=== PATIENT | male | born 1975 | race Caucasian/White ===

== ENCOUNTER 2016-10-22 15:35 | Outpatient (CLI) | payer OTHER | END 2016-10-22 16:12 | disposition home or self-care (01) | LOC: PROCWHC3 15:35 → PEDOP 16:12 | PROVIDERS: ATTEND Family Medicine | DX: J02.9 Acute pharyngitis, unspecified (principal); R05 Cough | CPT/HCPCS: 71020; 87502; 99212 ==

== ENCOUNTER → 2016-10-22 | Outpatient (CLI) | payer OTHER ==
--- NOTE | 2016-10-22 15:32 | XR ---
EXAMINATION TYPE: XR chest 2V DATE OF EXAM ORDERED: 10/22/2016 3:28 PM HISTORY: J02.9 Sore throat, R05 Cough. REFERENCE: None. FINDINGS: The lungs are clear. Pleural spaces are clear. Heart size is normal. IMPRESSION: NORMAL CHEST.
== END | disposition home or self-care (01) ==
LOC: RADXRMAIN 14:59
PROVIDERS: ATTEND Family Medicine
DX: R05 Cough (principal); J02.9 Acute pharyngitis, unspecified
CPT/HCPCS: 71020

== ENCOUNTER 2016-11-17 17:04 | Emergency (ER) | payer OTHER ==
[2016-11-17] MEDS ORDERED: SODIUM CHLORIDE 0.9% 1,000 ML IV ONE (18:34)
[2016-11-17] MEDS ORDERED: TAMSULOSIN 0.4 MG CAP.ER.24H PO STA (18:34)
[2016-11-17] MEDS ORDERED: KETOROLAC 30 MG/ML 1 ML VIAL IVP STA (18:34)
[2016-11-17] MEDS ORDERED: ONDANSETRON 4 MG/2 ML VIAL IVP STA (18:35)
--- NOTE | 2016-11-17 18:39 | ED ---
Abdominal Pain HPI - General Chief Complaint: Abdominal Pain Stated Complaint: side pain Time Seen by Provider: 11/17/16 18:25 Source: patient, RN notes reviewed Mode of arrival: ambulatory Limitations: no limitations - History of Present Illness Initial Comments: Patient is a 41-year-old male presents to the emergency for evaluation of left sided flank pain. Patient states he has a history of kidney stones. Patient states this feels like a kidney stone. Patient states pain began around 2 PM this afternoon. Patient states he drank water hoping it would pass it. Patient states the pain is not going away. Patient states he is nauseous but denies any vomiting. Patient states he is having slight trouble urinating. Patient denies any known blood in his urine. Patient denies constipation or diarrhea. Patient denies history of abdominal surgeries. Patient denies any abdominal pain. Patient denies headache or dizziness. Patient denies chest pain shortness of breath. Patient denies fevers or chills. Patient states having 10 out of 10 constant pain. Patient states pain does not improve with certain movements. - Related Data Home Medications Medication Instructions Recorded Confirmed Devil's Claw Otc 1 cap PO DAILY 11/17/16 11/17/16 Ibuprofen [Advil] 200 mg PO Q8HR PRN 11/17/16 11/17/16 Multivitamin [Men's Multi-Vitamin] 1 tab PO DAILY 11/17/16 11/17/16 Cecil-3 Fatty Acids/Fish Oil [Fish 1 cap PO DAILY 11/17/16 11/17/16 Oil 1,000 mg Softgel] Previous Rx's Medication Instructions Recorded Tamsulosin HCl [Flomax] 0.4 mg PO DAILY PRN #12 cap.er.24h 11/17/16 Allergies Allergy/AdvReac Type Severity Reaction Status Date / Time chocolate flavor Allergy Unknown Verified 11/17/16 17:21 Review of Systems ROS Statement: Those systems with pertinent positive or pertinent negative responses have been documented in the HPI. ROS Other: All systems not noted in ROS Statement are negative. Past Medical History Past Medical History: No Reported History Additional Past Medical History / Comment(s): kidney stones History of Any Multi-Drug Resistant Organisms: None Reported Past Surgical History: No Surgical Hx Reported Additional Past Surgical History / Comment(s): kidney stones Past Psychological History: No Psychological Hx Reported Smoking Status: Former smoker Past Alcohol Use History: None Reported Past Drug Use History: None Reported General Exam - General Exam Comments Initial Comments: Pacing around in exam room slight distress secondary to pain. Limitations: no limitations General appearance: alert Head exam: Present: atraumatic, normocephalic, normal inspection Eye exam: Present: normal appearance ENT exam: Present: normal exam Neck exam: Present: normal inspection Respiratory exam: Present: normal lung sounds bilaterally. Absent: respiratory distress Cardiovascular Exam: Present: regular rate, normal rhythm, normal heart sounds GI/Abdominal exam: Present: soft, normal bowel sounds. Absent: distended, tenderness, guarding, rebound, rigid Back exam: Present: normal inspection, full ROM, CVA tenderness (L). Absent: CVA tenderness (R) Neurological exam: Present: alert, oriented X3, CN II-XII intact, normal gait Psychiatric exam: Present: normal affect, normal mood Skin exam: Present: warm, dry, intact, normal color. Absent: rash Course Vital Signs 11/17/16 17:18 Temperature 98.8 F Pulse Rate 76 Respiratory 20 Rate Blood Pressure 172/96 O2 Sat by Pulse 95 Oximetry Medical Decision Making - Medical Decision Making Patient is a 41-year-old male presents to the emergency room for evaluation of left flank pain. Patient states after he urinated here he had relief of symptoms. Patient declined any narcotic pain relievers. Patient states he is feeling better. Patient states he would like to be discharged home. Advised patient to follow-up with his urologist or primary care provider. Right kidney stone noted on KUB x-ray. Patient states he is already aware of this. Return parameters discussed. - Lab Data Result diagrams: 11/17/16 18:50 11/17/16 18:50 Lab Results 11/17/16 11/17/16 11/17/16 Range/Units 18:50 18:50 19:50 WBC 7.9 (3.8-10.6) k/uL RBC 5.01 (4.30-5.90) m/uL Hgb 15.1 (13.0-17.5) gm/dL Hct 44.3 (39.0-53.0) % MCV 88.4 (80.0-100.0) fL MCH 30.2 (25.0-35.0) pg MCHC 34.2 (31.0-37.0) g/dL RDW 13.8 (11.5-15.5) % Plt Count 222 (150-450) k/uL Neutrophils % 71 % Lymphocytes % 18 % Monocytes % 8 % Eosinophils % 1 % Basophils % 1 % Neutrophils # 5.6 (1.3-7.7) k/uL Lymphocytes # 1.4 (1.0-4.8) k/uL Monocytes # 0.6 (0-1.0) k/uL Eosinophils # 0.1 (0-0.7) k/uL Basophils # 0.1 (0-0.2) k/uL Sodium 144 (137-145) mmol/L Potassium 4.3 (3.5-5.1) mmol/L Chloride 108 H (98-107) mmol/L Carbon Dioxide 27 (22-30) mmol/L Anion Gap 9 mmol/L BUN 15 (9-20) mg/dL Creatinine 0.90 (0.66-1.25) mg/dL Est GFR (MDRD) Af Amer >60 (>60 ml/min/1.73 sqM) Est GFR (MDRD) Non-Af >60 (>60 ml/min/1.73 sqM) Glucose 81 (74-99) mg/dL Calcium 9.9 (8.4-10.2) mg/dL Total Bilirubin 1.1 (0.2-1.3) mg/dL AST 50 (17-59) U/L ALT 66 (21-72) U/L Alkaline Phosphatase 54 (38-126) U/L Total Protein 7.5 (6.3-8.2) g/dL Albumin 4.4 (3.5-5.0) g/dL Urine Color Yellow Urine Appearance Cloudy (Clear) Urine pH 7.0 (5.0-8.0) Ur Specific [place] 1.011 (1.001-1.035) Urine Protein Trace H (Negative) Urine Glucose (UA) Negative (Negative) Urine Ketones Negative (Negative) Urine Blood Large H (Negative) Urine Nitrite Negative (Negative) Urine Bilirubin Negative (Negative) Urine Urobilinogen <2.0 (<2.0) mg/dL Ur Leukocyte Esterase Trace H (Negative) Urine RBC >182 H (0-5) /hpf Amorphous Sediment Rare H (None) /hpf Urine Bacteria Rare H (None) /hpf Urine Mucus Rare H (None) /hpf - Radiology Data Radiology results: report reviewed, image reviewed Disposition Clinical Impression: Hematuria, Left flank pain Disposition: HOME SELF-CARE Condition: Good Instructions: Kidney Stones (ED), Flank Pain (ED) Additional Instructions: Take Tylenol or Motrin as needed for pain. Drink plenty of water. Take Flomax as prescribed. Please follow-up with primary care provider or urologist in 24- 48 hours for reevaluation. If any new symptom arises or symptoms worsen, return to ER as soon as possible. Prescriptions: Tamsulosin HCl [Flomax] 0.4 mg PO DAILY PRN #12 cap.er.24h PRN Reason: Pain Referrals: Kierra Beth MD [Primary Care Provider] - 1-2 days Time of Disposition: 20:32
[2016-11-17 19:16] LABS: Basophils # (A) 0.1 k/uL (0-0.2); Basophils % (A) 1 %; CH 31.3; CHCM 35.5; Eosinophils # (A) 0.1 k/uL (0-0.7); Eosinophils % (A) 1 %; HCT 44.3 % (39.0-53.0); HDW 2.93; HGB 15.1 gm/dL (13.0-17.5); Luc # (Auto) 0.13; Luc % (Auto) 2; Lymphocytes # (A) 1.4 k/uL (1.0-4.8); Lymphocytes % (A) 18 %; MCH 30.2 pg (25.0-35.0); MCHC 34.2 g/dL (31.0-37.0); MCV 88.4 fL (80.0-100.0); Monocytes # (A) 0.6 k/uL (0-1.0); Monocytes % (A) 8 %; Neutrophils # (A) 5.6 k/uL (1.3-7.7); Neutrophils % (A) 71 %; RBC 5.01 m/uL (4.30-5.90); RDW 13.8 % (11.5-15.5); WBC 7.9 k/uL (3.8-10.6); WBC (Perox) 7.42
--- NOTE | 2016-11-17 19:22 | XR ---
EXAMINATION TYPE: XR KUB DATE OF EXAM: 11/17/2016 6:46 PM COMPARISON: NONE INDICATION: Pain TECHNIQUE: Single view abdomen upright view FINDINGS: There is a normal bowel gas pattern. Psoas margins are normal. No organomegaly is present. There is a 1.4 similar calcification inferior pole right kidney. A 0.6 cm calcification is within the inferior pole right kidney. IMPRESSION: 1. Right renal stones.
[2016-11-17 19:28] LABS: ALT 66 U/L (21-72); AST 50 U/L (17-59); Alkaline Phosphatase 54 U/L (38-126); Anion Gap 9 mmol/L; Blood Urea Nitrogen 15 mg/dL (9-20); Calcium 9.9 mg/dL (8.4-10.2); Carbon Dioxide 27 mmol/L (22-30); Chloride 108 mmol/L (98-107); Glucose 81 mg/dL (74-99); Non-African American GFR(MDRD) >60 (>60 ml/min/1.73 sqM); Potassium 4.3 mmol/L (3.5-5.1); Sodium 144 mmol/L (137-145); Total Bilirubin 1.1 mg/dL (0.2-1.3); Total Protein 7.5 g/dL (6.3-8.2)
[2016-11-17 20:07] LABS: Amorphous Sediment,Urine Rare /hpf; Appearance,Urine Cloudy (Clear); Bacteria,Urine Rare /hpf; Bilirubin,Urine Negative (Negative); Glucose,Urine (UA) Negative (Negative); Ketones,Urine Negative (Negative); Leukocyte Esterase,Urine Trace (Negative); Mucus,Urine Rare /hpf; Nitrite,Urine Negative (Negative); Particle Count 8843; Protein,Urine Trace (Negative); RBC,Urine >182 /hpf (0-5); Specific Gravity,Urine 1.011 (1.001-1.035); UA Billing (MACRO vs. MICRO) MICRO; Urobilinogen,Urine <2.0 mg/dL (<2.0)
[2016-11-17 20:41] VITALS: BP 144/79; PULSE 87; RESP 18; TEMP 98
== END 2016-11-17 20:41 | disposition home or self-care (01) ==
LOC: EC 17:04
DX: R31.9 Hematuria, unspecified (principal); R10.9 Unspecified abdominal pain; N20.0 Calculus of kidney; Z87.891 Personal history of nicotine dependence; Z79.899 Other long term (current) drug therapy; Z91.018 Allergy to other foods
CPT/HCPCS: 36415; 80053; 85025; 81001; 74000; 99284; 96374; 96375; J2405; J1885

== ENCOUNTER 2017-08-21 19:38 | Emergency (ER) | payer OTHER ==
--- NOTE | 2017-08-21 20:16 | ED ---
General Adult HPI - General Chief complaint: Fall Stated complaint: fall,head lac Time Seen by Provider: 08/21/17 19:59 Source: patient, family, EMS, RN notes reviewed Mode of arrival: wheelchair Limitations: no limitations - History of Present Illness Initial comments: Chief complaint and history of present illness a 42-year-old male reports about a gas station he stepped out of his car slipped on black ice hitting the back of his head. No known loss of consciousness but no seizure activity reported. Patient presents with a headache. An abrasion to his scalp. His immunizations are up-to-date. - Related Data Home Medications Medication Instructions Recorded Confirmed Ibuprofen [Motrin Ib] 800 mg PO Q8H PRN 08/21/17 08/21/17 Allergies Allergy/AdvReac Type Severity Reaction Status Date / Time chocolate flavor Allergy Unknown Verified 08/21/17 20:41 corn Allergy Rash/Hives Verified 08/21/17 20:41 strawberry Allergy Rash/Hives Verified 08/21/17 20:41 FIG Allergy Unknown Uncoded 08/21/17 20:41 Review of Systems ROS Statement: Those systems with pertinent positive or pertinent negative responses have been documented in the HPI. Review of systems patient has a mild headache no visual acuity changes minimal no neck pain no back pain no chest pain or shortness of breath no neuro deficits. Does not complain of nausea or vomiting and again there is no seizure activity at the event. All systems were reviewed. Past medical problems significant for multiple kidney stones. His only surgical procedure been a cystoscopy. The patient's family history has various cancers most notably non-Hodgkin's lymphoma. The patient's denying any ALLERGIES. He does smoke occasionally. Denies alcohol use. ROS Other: All systems not noted in ROS Statement are negative. Past Medical History Past Medical History: No Reported History Additional Past Medical History / Comment(s): kidney stones History of Any Multi-Drug Resistant Organisms: None Reported Past Surgical History: No Surgical Hx Reported Additional Past Surgical History / Comment(s): kidney stones Past Psychological History: No Psychological Hx Reported Smoking Status: Current some day smoker Past Alcohol Use History: None Reported Past Drug Use History: None Reported General Exam - General Exam Comments Initial Comments: General: The patient is awake and alert, in no distress, and does not appear acutely ill. She complains of a headache after slipping on black ice and bumping his head. Temp 98.0 pulse 63 respiratory rate 16 pulse ox 96% room air blood pressure 182/99 this will be repeated. Eye: Pupils are equal, round and reactive to light, extra-ocular movements are intact ; there is normal conjunctiva bilaterally. No signs of icterus. Ears, nose, mouth and throat: Head; abrasion on the occiput. No open wound. Cleaned and dressed properly. There are moist mucous membranes and no oral lesions. Neck: The neck is supple, there is no tenderness , minimal discomfort. Full range of motion. Cardiovascular: There is a regular rate and rhythm. No murmur, rub or gallop is appreciated. Respiratory: Lungs are clear to auscultation, respirations are non-labored, breath sounds are equal. No wheezes, stridor, rales, or rhonchi. Gastrointestinal: Soft, non-distended, non-tender abdomen without masses or organomegaly noted. There is no rebound or guarding present. No CVA tenderness. Bowel sounds are unremarkable. Back: There is no tenderness to palpation in the midline. There is no obvious deformity. No rashes noted. Full range of motion without pain. Musculoskeletal: Normal ROM, no tenderness, There is no pedal edema. There is no calf tenderness or swelling. Sensation intact. Full range of motion without pain. Neurological: CN II-XII intact, There are no obvious motor or sensory deficits. Coordination appears grossly intact. Speech is normal. No focal or lateralizing findings Skin: Skin is warm and dry and no rashes or lesions are noted. Limitations: no limitations Course Vital Signs 08/21/17 19:52 Temperature 98.0 F Pulse Rate 63 Respiratory 16 Rate Blood Pressure 182/99 O2 Sat by Pulse 96 Oximetry Medical Decision Making - Medical Decision Making Medical decision making; this is a 42-year-old male who slipped on black ice while getting out of his car at a gas station. Hitting the back of his head. He presents with an abrasion. No apparent loss of consciousness and no seizure activity at the time. Complains a headache. The abrasions to his occiput was cleaned and dressed with topical antibiotic ointment. No need for sutures. Patient had a CAT scan of the brain and cervical spine. CT the brain and cervical spine was done and reviewed radiologist entire reports were reviewed. Final impression is there is no acute fracture or dislocation evident in the cervical spine. No acute intracranial hemorrhage, mass effect, or midline shift seen. Occipital scalp hematoma measuring 1.1 cm in greatest thickness. Straightening of a usual cervical lordosis that may reflect relate to muscular spasm or patient positioning. As read by Dr. Moore Patient be advised to wash the scalp gently. Apply topical bacitracin. Use a ice pack on his scalp. Take ibuprofen or Tylenol for discomfort. Advised follow-up with family physician. Disposition Clinical Impression: Scalp contusion Disposition: HOME SELF-CARE Condition: Fair Instructions: Concussion (ED), Post Concussion Syndrome (ED) Additional Instructions: Rest relax, follow-up with family doctor. Is a cold compress on his scalp. Wash gently. Apply bacitracin to areas of abrasion. Use Tylenol or ibuprofen for pain. Referrals: Kierra Beth MD [Primary Care Provider] - 1-2 days Time of Disposition: 21:04
--- NOTE | 2017-08-21 20:56 | CT ---
EXAMINATION TYPE: CT brain eleanor newell con DATE OF EXAM: 08/21/2017 COMPARISON: NONE HISTORY: Fall with subsequent head and neck pain. CT DLP: 1833.9 mGycm. Automated Exposure Control for Dose Reduction was Utilized. TECHNIQUE: CT scan of the head and cervical spine are performed without contrast. FINDINGS: There is no acute intracranial hemorrhage, mass effect, or midline shift identified. The ventricles and sulci are within normal limits in size. The globes are intact and the visualized sin uses are clear. Posterior occipital scalp hematoma measures 1.1 cm in greatest thickness. No underlyi ng calvarial fracture or intracranial hemorrhage. Cervical spine is visualized in its entirety from C1 through upper thoracic levels and demonstrates s atisfactory alignment without evidence of acute fracture or dislocation. Prevertebral soft tissue ap pears within normal limits. The C1-C2 articulation is unremarkable. There is straightening of the u sual cervical lordosis. IMPRESSION: 1. There is no acute fracture or dislocation evident in the cervical spine. 2. No acute intracranial hemorrhage, mass effect, or midline shift is seen. 3. Occipital scalp hematoma measuring 1.1 cm in greatest thickness. 4. Straightening of the usual cervical lordosis that may relate to muscular spasm or patient position ing.
[2017-08-21] MEDS ORDERED: ONDANSETRON 4 MG ODT STARTER PACK 2 TAB BTL PO STA (21:07)
[2017-08-21 21:39] VITALS: BP 115/87; PULSE 99; RESP 18; TEMP 97.4
== END 2017-08-21 21:39 | disposition home or self-care (01) ==
LOC: EC 19:38
DX: S00.03XA Contusion of scalp, initial encounter (principal); F17.200 Nicotine dependence, unspecified, uncomplicated; Z91.018 Allergy to other foods; W00.0XXA Fall on same level due to ice and snow, initial encounter; Y93.89 Activity, other specified; Y92.524 Gas station as the place of occurrence of the external cause
CPT/HCPCS: 99284; 72125; 70450; S0119

== ENCOUNTER 2017-12-19 07:02 | Emergency (ER) | payer OTHER ==
[2017-12-19 07:08] VITALS: BP 200/114; PULSE 73; RESP 18; TEMP 98.2
[2017-12-19] MEDS ORDERED: SODIUM CHLORIDE 0.9% 1,000 ML IV STA (07:22)
[2017-12-19] MEDS ORDERED: METOCLOPRAMIDE 5 MG/ML 2 ML VIAL IVP STA (07:22)
[2017-12-19] MEDS ORDERED: KETOROLAC 30 MG/ML 1 ML VIAL IVP STA (07:22)
--- NOTE | 2017-12-19 07:25 | ED ---
General Adult HPI - General Chief complaint: Abdominal Pain Stated complaint: Flank Pain Time Seen by Provider: 12/19/17 07:16 Source: patient, RN notes reviewed Mode of arrival: ambulatory Limitations: no limitations - History of Present Illness Initial comments: Patient is a pleasant 42-year-old male presenting to the emergency Department with complaints of right flank pain. Patient has had multiple previous kidney stones with similar symptoms. Onset this time was around 1 month ago. Symptoms worsened throughout the night. Discomfort is severe at this time. Patient gently pass out 3 kidney stones per year similar symptoms. Patient did see his urologist less than 1 year ago and was told he has a large kidney stone. No dysuria or hematuria. Patient does have some mild nausea. No fever. - Related Data Home Medications Medication Instructions Recorded Confirmed Ibuprofen [Motrin Ib] 800 mg PO Q8H PRN 08/21/17 08/21/17 Previous Rx's Medication Instructions Recorded Ketorolac [Toradol] 10 mg PO Q6HR PRN #15 tab 12/19/17 Metoclopramide HCl [Reglan] 10 mg PO Q6HR PRN #15 tablet 12/19/17 Allergies Allergy/AdvReac Type Severity Reaction Status Date / Time chocolate flavor Allergy Unknown Verified 12/19/17 07:08 corn Allergy Rash/Hives Verified 12/19/17 07:08 strawberry Allergy Rash/Hives Verified 12/19/17 07:08 FIG Allergy Unknown Uncoded 12/19/17 07:08 Review of Systems ROS Statement: Those systems with pertinent positive or pertinent negative responses have been documented in the HPI. ROS Other: All systems not noted in ROS Statement are negative. Constitutional: Denies: fever, chills Eyes: Denies: eye pain ENT: Denies: ear pain Respiratory: Denies: dyspnea Cardiovascular: Denies: chest pain Endocrine: Denies: fatigue Gastrointestinal: Reports: abdominal pain, nausea Genitourinary: Denies: dysuria Musculoskeletal: Reports: back pain (Right flank) Skin: Denies: rash Neurological: Denies: weakness Past Medical History Past Medical History: No Reported History Additional Past Medical History / Comment(s): kidney stones History of Any Multi-Drug Resistant Organisms: None Reported Past Surgical History: No Surgical Hx Reported Additional Past Surgical History / Comment(s): kidney stones Past Psychological History: No Psychological Hx Reported Smoking Status: Current some day smoker Past Alcohol Use History: None Reported Past Drug Use History: None Reported General Exam Limitations: no limitations General appearance: alert, in no apparent distress Head exam: Present: atraumatic Eye exam: Present: normal appearance, PERRL Neck exam: Present: normal inspection Respiratory exam: Present: normal lung sounds bilaterally Cardiovascular Exam: Present: regular rate, normal rhythm GI/Abdominal exam: Present: soft, tenderness (Mild tenderness right flank to right lower quadrant) Extremities exam: Present: normal inspection Back exam: Present: CVA tenderness (R) Neurological exam: Present: alert Psychiatric exam: Present: normal affect, normal mood Skin exam: Present: normal color Course Vital Signs 12/19/17 07:05 Temperature 98.2 F Pulse Rate 73 Respiratory 18 Rate Blood Pressure 200/114 O2 Sat by Pulse 96 Oximetry Medical Decision Making - Medical Decision Making Patient reevaluated and significantly improved with Toradol. Patient requests discharge. Patient and father updated on results and need for follow-up - Lab Data Result diagrams: 12/19/17 07:38 12/19/17 07:38 Lab Results 12/19/17 12/19/17 12/19/17 Range/Units 07:38 07:38 09:05 WBC 9.3 (3.8-10.6) k/uL RBC 5.22 (4.30-5.90) m/uL Hgb 15.8 (13.0-17.5) gm/dL Hct 45.0 (39.0-53.0) % MCV 86.2 (80.0-100.0) fL MCH 30.2 (25.0-35.0) pg MCHC 35.0 (31.0-37.0) g/dL RDW 13.2 (11.5-15.5) % Plt Count 215 (150-450) k/uL Neutrophils % 79 % Lymphocytes % 11 % Monocytes % 8 % Eosinophils % 1 % Basophils % 0 % Neutrophils # 7.4 (1.3-7.7) k/uL Lymphocytes # 1.0 (1.0-4.8) k/uL Monocytes # 0.7 (0-1.0) k/uL Eosinophils # 0.1 (0-0.7) k/uL Basophils # 0.0 (0-0.2) k/uL Sodium 141 (137-145) mmol/L Potassium 4.4 (3.5-5.1) mmol/L Chloride 102 (98-107) mmol/L Carbon Dioxide 27 (22-30) mmol/L Anion Gap 12 mmol/L BUN 16 (9-20) mg/dL Creatinine 1.17 (0.66-1.25) mg/dL Est GFR (CKD-EPI)AfAm 89 (>60 ml/min/1.73 sqM) Est GFR (CKD-EPI)NonAf 77 (>60 ml/min/1.73 sqM) Glucose 101 H (74-99) mg/dL Calcium 9.6 (8.4-10.2) mg/dL Total Bilirubin 1.0 (0.2-1.3) mg/dL AST 37 (17-59) U/L ALT 67 (21-72) U/L Alkaline Phosphatase 58 (38-126) U/L Total Protein 7.0 (6.3-8.2) g/dL Albumin 4.4 (3.5-5.0) g/dL Amylase 55 (30-110) U/L Lipase 103 (23-300) U/L Urine Color Light Yellow Urine Appearance Clear (Clear) Urine pH 7.5 (5.0-8.0) Ur Specific [place] 1.013 (1.001-1.035) Urine Protein Negative (Negative) Urine Glucose (UA) Negative (Negative) Urine Ketones Negative (Negative) Urine Blood Trace H (Negative) Urine Nitrite Negative (Negative) Urine Bilirubin Negative (Negative) Urine Urobilinogen <2.0 (<2.0) mg/dL Ur Leukocyte Esterase Negative (Negative) Urine RBC 2 (0-5) /hpf Urine WBC 2 (0-5) /hpf Urine Mucus Rare H (None) /hpf - Radiology Data Radiology results: image reviewed (KUB shows to right-sided kidney stones.) Disposition Clinical Impression: Kidney stone on right side Disposition: HOME SELF-CARE Condition: Stable Instructions: Kidney Stones (ED) Additional Instructions: Please follow-up with primary care physician and urologist in the next couple of days for recheck. Return for fever, increased pain, vomiting, worsening symptoms or other concerns. Prescriptions: Ketorolac [Toradol] 10 mg PO Q6HR PRN #15 tab PRN Reason: Pain Metoclopramide HCl [Reglan] 10 mg PO Q6HR PRN #15 tablet PRN Reason: Nausea Is patient prescribed a controlled substance at d/c from ED?: No Referrals: Kierra Beth MD [Primary Care Provider] - 1-2 days Juan Antonio Linares MD [Family Provider] - 1-2 days Time of Disposition: 09:55
[2017-12-19 08:00] LABS: Basophils % (A) 0 %; Eosinophils # (A) 0.1 k/uL (0-0.7); Eosinophils % (A) 1 %; HGB 15.8 gm/dL (13.0-17.5); Lymphocytes % (A) 11 %; MCH 30.2 pg (25.0-35.0); MCV 86.2 fL (80.0-100.0); Mean Platelet Volume 6.9; Monocytes # (A) 0.7 k/uL (0-1.0); Monocytes % (A) 8 %; Neutrophils # (A) 7.4 k/uL (1.3-7.7); Neutrophils % (A) 79 %; Platelet Count 215 k/uL (150-450); RBC 5.22 m/uL (4.30-5.90); RDW 13.2 % (11.5-15.5); WBC 9.3 k/uL (3.8-10.6)
[2017-12-19 08:04] LABS: Albumin 4.4 g/dL (3.5-5.0); Calcium 9.6 mg/dL (8.4-10.2); Potassium 4.4 mmol/L (3.5-5.1)
--- NOTE | 2017-12-19 08:10 | XR ---
EXAMINATION TYPE: XR KUB DATE OF EXAM: 12/19/2017 8:01 AM CLINICAL HISTORY: Right flank pain and history of nephrolithiasis TECHNIQUE: Single supine KUB image of the abdomen is obtained. COMPARISON: 11/17/2016. FINDINGS: The previously seen approximately 1.4 cm and adjacent 5 mm right lower pole renal calculi a re unchanged in position from the prior exam of 11/17/2016. Additional calculus is seen in the upper p ole measuring 8 mm. Similar-appearing phleboliths are noted within the pelvis with a new phlebolith h aving a lucent center on the right. No abnormal calcifications are seen along the course of the urete rs. Gas is seen in non-distended small bowel loops. Gas and fecal material is seen in non-distended c olon. The lung bases are clear and the osseous structures are intact. IMPRESSION: Stable right lower pole renal calculi in comparison to exam of 11/17/2016 with an addition al right upper pole renal calculus identified. No calculi are seen along the course of the ureters.
[2017-12-19] MEDS ORDERED: SODIUM CHLORIDE 0.9% 1,000 ML BAG ONE (08:38)
[2017-12-19] MEDS ORDERED: KETOROLAC 30 MG/ML 1 ML VIAL ONE (08:38)
[2017-12-19] MEDS ORDERED: METOCLOPRAMIDE 5 MG/ML 2 ML VIAL ONE (08:38)
[2017-12-19 09:22] LABS: Appearance,Urine Clear (Clear); Bilirubin,Urine Negative (Negative); Blood,Urine Trace (Negative); Color,Urine Light Yellow; Glucose,Urine (UA) Negative (Negative); Ketones,Urine Negative (Negative); Leukocyte Esterase,Urine Negative (Negative); Mucus,Urine Rare /hpf; Nitrite,Urine Negative (Negative); PH, Urine 7.5 (5.0-8.0); Protein,Urine Negative (Negative); RBC,Urine 2 /hpf (0-5); Specific Gravity,Urine 1.013 (1.001-1.035); Urobilinogen,Urine <2.0 mg/dL (<2.0); WBC,Urine 2 /hpf (0-5)
== END 2017-12-19 10:04 | disposition home or self-care (01) ==
LOC: EC 07:02
DX: N20.0 Calculus of kidney (principal); F17.200 Nicotine dependence, unspecified, uncomplicated; Z91.018 Allergy to other foods
CPT/HCPCS: 36415; 74018; 80053; 81001; 82150; 83690; 85025; 99284

== ENCOUNTER 2021-10-09 17:34 | Emergency (ER) | payer OTHER ==
[2021-10-09 17:49] VITALS: BP 141/89; PULSE 74; RESP 18; TEMP 97.9
[2021-10-09] MEDS ORDERED: CLOTRIMAZOLE/BETAMETH 1-0.05% CREAM 45 GM TUBE TOPICAL STA (21:44)
[2021-10-09 21:59] LABS: Basophils # (A) 0.1 k/uL (0-0.2); Basophils % (A) 1 %; Eosinophils # (A) 0.2 k/uL (0-0.7); Eosinophils % (A) 3 %; HCT 44.1 % (39.0-53.0); HGB 15.2 gm/dL (13.0-17.5); Lymphocytes # (A) 2.4 k/uL (1.0-4.8); Lymphocytes % (A) 36 %; MCH 30.8 pg (25.0-35.0); MCHC 34.5 g/dL (31.0-37.0); Monocytes # (A) 0.6 k/uL (0-1.0); Monocytes % (A) 8 %; Neutrophils # (A) 3.3 k/uL (1.3-7.7); Neutrophils % (A) 50 %; Platelet Count 214 k/uL (150-450); RBC 4.95 m/uL (4.30-5.90); RDW 12.9 % (11.5-15.5); WBC 6.7 k/uL (3.8-10.6)
[2021-10-09 22:08] LABS: African American GFR (CKD) >90 (>60 ml/min/1.73 sqM); Anion Gap 6 mmol/L; Blood Urea Nitrogen 18 mg/dL (9-20); Calcium 9.2 mg/dL (8.4-10.2); Carbon Dioxide 27 mmol/L (22-30); Chloride 105 mmol/L (98-107); Glucose 116 mg/dL (74-99); Non-African American GFR(CKD) >90 (>60 ml/min/1.73 sqM); Potassium 3.7 mmol/L (3.5-5.1); Sodium 138 mmol/L (137-145)
--- NOTE | 2021-10-09 22:19 | ED ---
General Adult HPI - General Chief complaint: Skin/Abscess/Foreign Body Stated complaint: Skin Time Seen by Provider: 10/09/21 20:58 Source: patient, RN notes reviewed Mode of arrival: ambulatory Limitations: no limitations - History of Present Illness Initial comments: 46-year-old male presents to the emergency department for evaluation of swelling and skin breakdown to the foreskin of his penis. Patient states this has been an ongoing issue for the past 2 months, however only recently discussed this issue with his PCP. States she started him on Augmentin earlier this week, though he has only had 3 doses with some improvement. Patient states he has painful erections due to splitting and cracking of the foreskin. Patient states he has not been sexually active for more than seven years and is not concerned about any sexually acquired infectious process. States he has been bathing in [employer] salt soaks. Denies any penile pain or discharge. No fever, chills, abdominal pain, groin pain, pelvic pain, hematuria, or dysuria. - Related Data Home Medications Medication Instructions Recorded Confirmed Ibuprofen [Motrin Ib] 800 mg PO Q8H PRN 08/21/17 08/21/17 Previous Rx's Medication Instructions Recorded Ketorolac [Toradol] 10 mg PO Q6HR PRN #15 tab 12/19/17 Metoclopramide HCl [Reglan] 10 mg PO Q6HR PRN #15 tablet 12/19/17 Clotrimazole/Betamethasone Dip 1 applic TOPICAL BID #45 gm 10/09/21 [Lotrisone Cream] Allergies Allergy/AdvReac Type Severity Reaction Status Date / Time chocolate flavor Allergy Unknown Verified 10/09/21 17:49 corn Allergy Rash/Hives Verified 10/09/21 17:49 strawberry Allergy Rash/Hives Verified 10/09/21 17:49 FIG Allergy Unknown Uncoded 10/09/21 17:49 Review of Systems ROS Statement: Those systems with pertinent positive or pertinent negative responses have been documented in the HPI. ROS Other: All systems not noted in ROS Statement are negative. Past Medical History Past Medical History: No Reported History Additional Past Medical History / Comment(s): kidney stones History of Any Multi-Drug Resistant Organisms: None Reported Past Surgical History: No Surgical Hx Reported Additional Past Surgical History / Comment(s): kidney stones Past Psychological History: No Psychological Hx Reported Smoking Status: Former smoker Past Alcohol Use History: None Reported Past Drug Use History: None Reported General Exam Limitations: no limitations (Well-developed, well-nourished male in no acute distress. Initial temperature 97.9, pulse 74, respirations 18, blood pressure 141/89, pulse ox 96% on room air.) General appearance: alert, in no apparent distress Respiratory exam: Present: normal lung sounds bilaterally. Absent: respiratory distress, wheezes, rales, rhonchi, stridor Cardiovascular Exam: Present: regular rate, normal rhythm, normal heart sounds. Absent: systolic murmur, diastolic murmur, rubs, gallop, clicks exam: Absent: testicular tenderness, urethral discharge, scrotal swelling External exam: Present: erythema (Mildly erythematous foreskin around scabbed wounds; moderate amount of swelling noted), swelling (foreskin retracts though with quite a bit of discomfort; able to pass urine without difficulty.), lesions (lesions are not herpetic/vesicular or chancre in appearance; likely fungal) Neurological exam: Present: alert, oriented X3, CN II-XII intact Psychiatric exam: Present: normal affect, normal mood Skin exam: Present: warm, dry, intact, normal color Course Vital Signs 10/09/21 17:38 Temperature 97.9 F Pulse Rate 74 Respiratory 18 Rate Blood Pressure 141/89 O2 Sat by Pulse 96 Oximetry Medical Decision Making - Medical Decision Making This is a 46-year-old male with a past medical history of obesity and hypertension who presents to the emergency department for evaluation of painful foreskin. Upon exam, patient is nontoxic, well appearing, and in no acute distress. Vital signs are stable. The foreskin of patient's penis is mildly erythematous and edematous with areas of cracked skin, scabs, and reddened sores. Foreskin is able to retract to visualize glans and urethral opening; which are non-erythematous. Patient is passing urine without difficulty. He has not been sexually active for more than 7 years, therefore is not concerned about sexually acquired infection. Discussed hygiene, and patient reports that he has been working to improve his overall health and appearance. He is taking Augmentin as prescribed by his PCP and seen improvement. Laboratory studies were obtained and are unremarkable. Patient will be started on a combination antifungal/steroid cream to reduce inflammation and treat potential fungal infection. Hygiene care was discussed at length with patient. He is encouraged to continue taking his antibiotic as prescribed by his PCP. Also suggested urology follow-up for further evaluation and treatment. Return parameters were discussed in detail. Patient verbalizes understanding and agrees with this plan. Attending: June. - Lab Data Result diagrams: 10/09/21 21:52 10/09/21 21:52 Lab Results 10/09/21 10/09/21 Range/Units 21:52 21:52 WBC 6.7 (3.8-10.6) k/uL RBC 4.95 (4.30-5.90) m/uL Hgb 15.2 (13.0-17.5) gm/dL Hct 44.1 (39.0-53.0) % MCV 89.0 (80.0-100.0) fL MCH 30.8 (25.0-35.0) pg MCHC 34.5 (31.0-37.0) g/dL RDW 12.9 (11.5-15.5) % Plt Count 214 (150-450) k/uL MPV 8.0 Neutrophils % 50 % Lymphocytes % 36 % Monocytes % 8 % Eosinophils % 3 % Basophils % 1 % Neutrophils # 3.3 (1.3-7.7) k/uL Lymphocytes # 2.4 (1.0-4.8) k/uL Monocytes # 0.6 (0-1.0) k/uL Eosinophils # 0.2 (0-0.7) k/uL Basophils # 0.1 (0-0.2) k/uL Sodium 138 (137-145) mmol/L Potassium 3.7 (3.5-5.1) mmol/L Chloride 105 (98-107) mmol/L Carbon Dioxide 27 (22-30) mmol/L Anion Gap 6 mmol/L BUN 18 (9-20) mg/dL Creatinine 0.94 (0.66-1.25) mg/dL Est GFR (CKD-EPI)AfAm >90 (>60 ml/min/1.73 sqM) Est GFR (CKD-EPI)NonAf >90 (>60 ml/min/1.73 sqM) Glucose 116 H (74-99) mg/dL Calcium 9.2 (8.4-10.2) mg/dL Disposition Clinical Impression: Balanoposthitis Disposition: HOME SELF-CARE Condition: Stable Instructions (If sedation given, give patient instructions): Balanoposthitis (ED) Additional Instructions: Continue taking the antibiotic as prescribed by your PCP. Apply topical cream twice daily. Soak in warm Epsom salt bath; avoid soap or harsh chemicals. Follow-up with your PCP next week. Return to the emergency department with any new, worsening, or concerning symptoms. Prescriptions: Clotrimazole/Betamethasone Dip [Lotrisone Cream] 1 applic TOPICAL BID #45 gm Is patient prescribed a controlled substance at d/c from ED?: No Referrals: Kierra Beth MD [Primary Care Provider] - 1-2 days Time of Disposition: 22:19
== END 2021-10-09 22:30 | disposition home or self-care (01) ==
LOC: EC 17:34
DX: N47.6 Balanoposthitis (principal); E66.9 Obesity, unspecified; I10 Essential (primary) hypertension; Z87.891 Personal history of nicotine dependence; Z91.018 Allergy to other foods; Z68.41 Body mass index [BMI] 40.0-44.9, adult
CPT/HCPCS: 36415; 80048; 85025; 99283